=== PATIENT | male | born 1940 | race Caucasian/White ===

== ENCOUNTER 2018-07-20 06:03 | Day surgery (SDC) ==
[2018-07-20] MEDS ORDERED: DEX-MOXI-KETOR OPTH INJ 1/0.5/0.4 MG/ML IO ONE (06:22)
[2018-07-20] MEDS ORDERED: ZOFRAN 4 MG/2 ML IVP ONE (06:22)
[2018-07-20] MEDS ORDERED: BSS WITH EPINEPHRINE OP ONE (06:22)
[2018-07-20] MEDS ORDERED: LIDOCAINE 1% 20 ML MDV ID STA (06:22)
[2018-07-20] MEDS ORDERED: LIDOCAINE 1%/PHENYLEPHRINE 1.5% BSS (SURGERY) INTRAOCULA ONE (06:22)
[2018-07-20] MEDS ORDERED: BRIMONIDINE TARTRATE 0.2% OPTH SOL OP PRN (06:22)
[2018-07-20] MEDS: CYCLOGYL 2% OPTH OP PRN ×3 (06:25→06:35)
[2018-07-20] MEDS: TETRACAINE 0.5% UNIT-DOSE OP PRN ×3 (06:25→07:14)
[2018-07-20] MEDS: BETADINE OPTH PREP OP PRN ×2 (06:25→07:00)
[2018-07-20] MEDS ORDERED: VERSED ONE (07:05)
[2018-07-20] MEDS ORDERED: ZOFRAN 4 MG/2 ML ONE (07:05)
[2018-07-20] MEDS ORDERED: SUBLIMAZE ONE (07:05)
[2018-07-20 07:53] VITALS: TEMP 98
[2018-07-20 08:06] VITALS: BP 118/68
== END 2018-07-20 08:05 | disposition home or self-care (01) ==
LOC: SURG 06:03
PROVIDERS: ATTEND Ophthalmology
DX: H25.12 Age-related nuclear cataract, left eye (principal)

== ENCOUNTER 2018-07-27 06:28 | Day surgery (SDC) ==
[2018-07-27] MEDS: TETRACAINE 0.5% UNIT-DOSE OP PRN ×2 (06:40→07:30)
[2018-07-27] MEDS: BETADINE OPTH PREP OP PRN ×2 (06:40→07:30)
[2018-07-27] MEDS: CYCLOGYL 2% OPTH OP PRN ×3 (06:41→06:51)
[2018-07-27] MEDS ORDERED: BRIMONIDINE TARTRATE 0.2% OPTH SOL OP PRN (06:45)
[2018-07-27] MEDS ORDERED: ZOFRAN 4 MG/2 ML IVP ONE (06:45)
[2018-07-27] MEDS ORDERED: LIDOCAINE 1% 20 ML MDV ID STA (06:45)
[2018-07-27 06:50] VITALS: TEMP 97.8
[2018-07-27] MEDS: BSS WITH EPINEPHRINE OP ONE ×2 (07:41→07:49)
[2018-07-27] MEDS: DEX-MOXI-KETOR OPTH INJ 1/0.5/0.4 MG/ML IO ONE ×2 (07:41→07:55)
[2018-07-27] MEDS: LIDOCAINE 1%/PHENYLEPHRINE 1.5% BSS (SURGERY) INTRAOCULA ONE ×2 (07:41→07:49)
[2018-07-27] MEDS ORDERED: SUBLIMAZE ONE (07:45)
[2018-07-27] MEDS ORDERED: VERSED ONE (07:45)
[2018-07-27] MEDS ORDERED: ZOFRAN 4 MG/2 ML ONE (07:45)
[2018-07-27 13:29] VITALS: BP 128/67
== END 2018-07-27 08:45 | disposition home or self-care (01) ==
LOC: SURG 06:28
PROVIDERS: ATTEND Ophthalmology
DX: H25.11 Age-related nuclear cataract, right eye (principal)